=== PATIENT | male | born 1940 | race Caucasian/White ===

== ENCOUNTER 2021-03-18 11:33 | Emergency (ER) | payer MEDICARE, BC ==
[~2021-03-18] VITALS: Ht 175.3 cm; Wt 93.0 kg
[~2021-03-18 11:33] MED LIST: DIOVAN160 MG PO; DOXYCYCLINE 10100 MG PO; FISH OIL 1,001000 M1 PO; HYDROCODON-ACET15 ML PO; MULTI-VITAMIN1 EAC5 PO; NEXIUM40 MG PO; NIASPAN 500 MG500 M1 PO; PAROXETINE HCL30 MG PO; PROAIR HFA8.5 GM IH; TESSALON PERLE100 MG PO; VISTARIL 25 MG25 M1 PO; ZETIA10 MG PO
[2021-03-18] MEDS ORDERED: CEPHALEXIN500 MG PO (13:09)
[2021-03-18 13:21] VITALS: BP 138/72
== END 2021-03-18 13:21 | disposition home or self-care (01) ==
LOC: M.ERS 11:33
DX: S01.81XA Laceration without foreign body of other part of head, initial encounter (principal); I10 Essential (primary) hypertension; Z96.651 Presence of right artificial knee joint; Z85.46 Personal history of malignant neoplasm of prostate; Z79.899 Other long term (current) drug therapy; W20.8XXA Other cause of strike by thrown, projected or falling object, initial encounter; Y93.89 Activity, other specified; Y92.89 Other specified places as the place of occurrence of the external cause; Y99.9 Unspecified external cause status